=== PATIENT | female | born 1955 | race Two or more races ===

== ENCOUNTER → 2017-10-15 08:42 | Outpatient (CLI) | payer OTHER ==
[~2017-10-15 08:42] MED LIST: ATENOLOL25 MG; CELEBREX100 MG PO; COZAAR100 MG; COZAAR50 MG PO; HYZAAR 100-121 UDTAB; MOTRIN800 MG PO; NABUMETONE500 MG PO; NEURONTIN300 MG PO; NORVASC2.5 MG; SYNTHROID75 MCG; SYNTHROID88 MCG PO; TENORMIN25 MG PO; TUSSI PRES-B L120 M1 PO; ULTRACET PO; ULTRAM50 MG PO; ZITHROMAX TRI-500 MG PO; ZYRTEC10 MG PO
== END | disposition home or self-care (01) ==
LOC: LAB 08:42
DX: R10.84 Generalized abdominal pain (principal); I10 Essential (primary) hypertension; E11.9 Type 2 diabetes mellitus without complications; E03.8 Other specified hypothyroidism; E78.2 Mixed hyperlipidemia

== ENCOUNTER → 2017-10-17 | Emergency (ER) | payer OTHER ==
[~2017-10-17] VITALS: Ht 162.6 cm; Wt 83.9 kg
== END | disposition home or self-care (01) ==
LOC: ER 14:03
DX: M77.8 Other enthesopathies, not elsewhere classified (principal)

== ENCOUNTER 2018-05-26 07:35 | Outpatient (CLI) | payer OTHER | END 2018-05-26 07:45 | disposition home or self-care (01) | LOC: SONOGRAMA 07:35 | DX: E04.1 Nontoxic single thyroid nodule (principal) ==

== ENCOUNTER → 2018-07-11 | Emergency (ER) | payer OTHER ==
[~2018-07-11] VITALS: Ht 162.6 cm; Wt 86.2 kg
== END | disposition home or self-care (01) ==
LOC: ER 21:48
DX: H57.89 Other specified disorders of eye and adnexa (principal)

== ENCOUNTER 2020-02-25 20:27 | Emergency (ER) | payer OTHER ==
[~2020-02-25] VITALS: Ht 162.6 cm; Wt 81.6 kg
== END 2020-02-25 23:56 | disposition home or self-care (01) ==
LOC: ER 20:27
DX: I95.89 Other hypotension (principal); Z03.818 Encounter for observation for suspected exposure to other biological agents ruled out

== ENCOUNTER 2020-05-02 14:35 | Outpatient (CLI) | payer OTHER | END 2020-05-02 14:43 | disposition home or self-care (01) | LOC: NUCLEAR 14:35 | PROVIDERS: ATTEND Internal Medicine Endocrinology, Diabetes & Metabolism | DX: M81.0 Age-related osteoporosis without current pathological fracture (principal) ==

== ENCOUNTER → 2020-05-02 | Outpatient (CLI) | payer OTHER | END | disposition home or self-care (01) | LOC: SONOGRAMA 13:05 | DX: E04.2 Nontoxic multinodular goiter (principal) ==

== ENCOUNTER 2020-05-03 07:10 | Outpatient (CLI) | payer OTHER | END 2020-05-03 18:50 | disposition home or self-care (01) | LOC: LAB 07:10 | PROVIDERS: ATTEND Radiology Diagnostic Radiology | DX: N20.0 Calculus of kidney (principal) ==

== ENCOUNTER 2021-06-21 08:20 | Outpatient (CLI) | payer OTHER | END 2021-06-21 08:44 | disposition home or self-care (01) | LOC: LAB 08:20 | PROVIDERS: ATTEND Internal Medicine Cardiovascular Disease | DX: E03.9 Hypothyroidism, unspecified (principal); I10 Essential (primary) hypertension; E11.9 Type 2 diabetes mellitus without complications; E78.2 Mixed hyperlipidemia ==

== ENCOUNTER 2021-10-03 11:43 | Outpatient (CLI) | payer OTHER | END 2021-10-03 11:58 | disposition home or self-care (01) | LOC: TOM 11:43 | PROVIDERS: ATTEND Internal Medicine Cardiovascular Disease | DX: R07.9 Chest pain, unspecified (principal); J44.9 Chronic obstructive pulmonary disease, unspecified ==

== ENCOUNTER 2021-11-13 09:26 | Outpatient (CLI) | payer OTHER | END 2021-11-13 09:32 | disposition home or self-care (01) | LOC: NUCLEAR 09:26 | PROVIDERS: ATTEND Internal Medicine Cardiovascular Disease | DX: Z13.6 Encounter for screening for cardiovascular disorders (principal); Z88.8 Allergy status to other drugs, medicaments and biological substances; Z88.5 Allergy status to narcotic agent; Z88.6 Allergy status to analgesic agent ==